=== PATIENT | female | born 1935 | race Caucasian/White ===

== ENCOUNTER 2017-11-18 07:11 | Emergency (ER) | payer MEDICARE ==
[~2017-11-18] VITALS: Ht 157.5 cm; Wt 89.8 kg
[2017-11-18 07:13] VITALS: BP 144/69; PULSE 70; RESP 18; TEMP 98.1; O2SAT 95
[2017-11-18 07:39] LABS: BILIRUBIN, URINE NEG (NEG); BLOOD, URINE SMALL (NEG); GLUCOSE,URINE NEG (NEG); KETONE, URINE NEG (NEG); NITRITE,URINE NEG (NEG); PH, URINE 6.5 (5.0-8.5); URINE COLOR YELLOW (YELLW/STRAW); URINE LEUKOCYTE ESTERASE LARGE (NEG)
[2017-11-18 07:45] LABS: BACTERIA, URINE MOD /hpf; SQUAMOUS EPITHELIAL CELL URINE 0-5 /hpf (0-5); WBC, URINE INNUM /hpf (0-5); WHITE BLOOD CELL CLUMPS MOD
[2017-11-18] MEDS ORDERED: ENAL20TA PO (07:48)
[2017-11-18] MEDS ORDERED: ZOCO20TA PO (07:48)
[2017-11-18] MEDS ORDERED: ASPI-516 CHEW (07:48)
[2017-11-18] MEDS ORDERED: MULT-65 PO (07:49)
[2017-11-18] MEDS ORDERED: OMEGCAP PO (07:49)
[2017-11-18] MEDS ORDERED: FURO1TAB60 PO (07:49)
[2017-11-18] MEDS ORDERED: PHEN0.4T PO (07:53)
[2017-11-18] MEDS ORDERED: CEPH-460 PO (07:53)
[2017-11-18] MEDS ORDERED: CEPHALEXIN MONOHYDRATE 500 MG CAP PO ONE (08:00)
[2017-11-18] MEDS ORDERED: PHENAZOPYRIDINE HCL 200 MG TAB PO ONE (08:00)
--- NOTE | 2017-11-18 08:00 | PD ---
HPI . Dysuria Chief Complaint: Complaint Time Seen by Provider: 07:20 Travel History International Travel<30 days: No Contact w/Intl Traveler<30days: No Traveled to known affect area: No History of Present Illness HPI Patient presents with a chief complaint of dysuria and suprapubic pain. She also has frequency of urination. Onset of symptoms was a week ago. Symptoms have been getting progressively worse. She now rates her pain at 10/10. She has been treating herself with cranberry juice with no relief. She denies any previous history of urinary tract infections. PFSH Past Medical History Cardiac Catheterization: Yes Cardiovascular Problems: Yes High Cholesterol: Yes Chest Pain: Yes Congestive Heart Failure: Yes COPD: Yes Hypertension: Yes Tetanus Vaccination: > 5 Years Influenza Vaccination: Yes Menopausal: Yes Past Surgical History Cholecystectomy: Yes Eye Surgery: Yes (cataracts) Tonsillectomy: Yes Other Surgery: Yes (r knee, l shoulder) Social History Alcohol Use: No Tobacco Use: No Substance Use: No Allergies-Medications (Allergen,Severity, Reaction): Coded Allergies: Sulfa (Sulfonamide Antibiotics) (Verified Allergy, Severe, 11/18/17) Reported Meds & Prescriptions Reported Meds & Active Scripts Active Pyridium (Phenazopyridine HCl) 100 Mg Tab 200 Mg PO Q8H PRN Keflex (Cephalexin) 500 Mg Capsule 500 Mg PO TID 7 Days Reported [place]-3 Fish Oil/Vitamin (Fish Oil-Cholecalciferol) 1,000-1,000 Mg Cap 1 Cap PO DAILY Multi-Vitamin Daily (Multiple Vitamin) 1 Tab Tab 1 Tab PO DAILY Lasix (Furosemide) 40 Mg Tab 40 Mg PO DAILY Zocor (Simvastatin) 20 Mg Tab 20 Mg PO HS Aspirin 81 Mg Chew 81 Mg CHEW DAILY Enalapril (Enalapril Maleate) 20 Mg Tab 20 Mg PO DAILY Review of Systems Except as stated in HPI: all other systems reviewed are Neg Physical Exam Narrative GENERAL: Awake and alert and in no acute distress. SKIN: warm/dry. Normal color and turgor. HEAD: Normocephalic. Atraumatic. EYES: Pupils equal and round. Extraocular movements are intact. ENT: Mucous membranes pink and moist. NECK: Supple. Full range of motion without pain.. CARDIOVASCULAR: Regular rate and rhythm. RESPIRATORY: No accessory muscle use. GASTROINTESTINAL: Abdomen soft. Suprapubic tenderness. Bowel sounds present. Nondistended. MUSCULOSKELETAL: No obvious deformities. Normal muscle tone. NEUROLOGICAL: Awake and alert. No obvious cranial nerve deficits. Motor grossly within normal limits. Normal speech. PSYCHIATRIC: Appropriate mood and affect; insight and judgment normal. Data Data Last Documented VS Vital Signs Date Time Temp Pulse Resp B/P (MAP) Pulse Ox O2 Delivery O2 Flow Rate FiO2 11/18/17 07:13 98.1 70 18 144/69 (94) 95 Orders Orders Urinalysis - C+S If Indicated (11/18/17 07:20) Urine Culture (11/18/17 07:35) Ed Discharge Order (11/18/17 07:53) Cephalexin (Keflex) (11/18/17 08:00) Phenazopyridine (Pyridium) (11/18/17 08:00) Labs Laboratory Tests Test 11/18/17 07:35 Urine Collection Type CLEAN CATCH Urine Color YELLOW Urine Turbidity CLOUDY Urine pH 6.5 Urine Specific [place] 1.010 Urine Protein 30 mg/dL Urine Glucose (UA) NEG mg/dL Urine Ketones NEG mg/dL Urine Occult Blood SMALL Urine Nitrite NEG Urine Bilirubin NEG Urine Urobilinogen 0.2 MG/DL Urine Leukocyte Esterase LARGE Urine RBC 10-14 /hpf Urine WBC INNUM /hpf Urine WBC Clumps MOD Urine Squamous Epithelial Cells 0-5 /hpf Urine Bacteria MOD /hpf Microscopic Urinalysis Comment CULTURE INDICATED MDM Medical Decision Making Medical Screen Exam Complete: Yes Emergency Medical Condition: Yes Differential Diagnosis Final differential diagnosis of urinary symptoms includes but is not limited to UTI, kidney stone, pyelonephritis, bacterial vaginosis, yeast infection, urinary retention Narrative Course Patient presents with chief complaint of dysuria, suprapubic discomfort and frequency of urination. No SIRS criteria. UA>>large LE, 10-14 RBCs, innum WBCs, mod WBC clumps, mod bact She will be treated with Keflex and Pyridium. Diagnosis Primary Impression: Urinary tract infection Qualified Codes: N39.0 - Urinary tract infection, site not specified Patient Instructions: General Instructions, Urinary Tract Infection in Women ( ED) Departure Forms: Tests/Procedures Scripts Phenazopyridine (Pyridium) 100 Mg Tab 200 MG PO Q8H Y for DYSURIA, #20 TAB 0 Refills Prov: Geovanna Sher MD 11/18/17 Cephalexin (Keflex) 500 Mg Capsule 500 MG PO TID for Infection for 7 Days, CAP 0 Refills Prov: Geovanna Sher MD 11/18/17 Disposition: 01 DISCHARGE HOME Condition: Stable Geovanna Sher MD Nov 18, 2017 08:00
== END 2017-11-18 08:10 | disposition home or self-care (01) ==
LOC: PHED 07:11
DX: N39.0 Urinary tract infection, site not specified (principal); B96.20 Unspecified Escherichia coli [E. coli] as the cause of diseases classified elsewhere; E78.00 Pure hypercholesterolemia, unspecified; I11.0 Hypertensive heart disease with heart failure; I50.9 Heart failure, unspecified; J44.9 Chronic obstructive pulmonary disease, unspecified
CPT/HCPCS: 81001; 87077; 87086; 87186; 99283